=== PATIENT | male | born 1995 | race Caucasian/White ===

== ENCOUNTER 2024-03-12 09:08 | Inpatient (IN) | payer OTHER ==
[2024-03-12 09:31] VITALS: BMI 33.9
[2024-03-12] MEDS ORDERED: LOPERAMIDE HCL 2 MG CAPSULE PO PRN (10:14)
[2024-03-12] MEDS ORDERED: IBUPROFEN 600 MG TABLET (FP) PO PRN (10:14)
[2024-03-12] MEDS ORDERED: IBUPROFEN 400 MG TABLET (FP) PO PRN (10:14)
[2024-03-12] MEDS ORDERED: DICYCLOMINE HCL 10 MG CAPSULE PO PRN (10:14)
[2024-03-12] MEDS ORDERED: ONDANSETRON *ODT* 4 MG TABLET SL PRN (10:14)
[2024-03-12] MEDS ORDERED: NALOXONE HCL 0.4 MG/ML VIAL IM PRN (10:14)
[2024-03-12] MEDS ORDERED: hydrOXYzine PAMOATE 25 MG CAPSULE (FP) PO PRN (10:14)
[2024-03-12] MEDS ORDERED: MAGNESIUM HYDROX 2400MG/30ML ORAL SUSPENSION 30 ML CUP PO PRN (10:14)
[2024-03-12] MEDS ORDERED: MAG HYDROX/AL HYDROX/SIMETH 30 ML UNIT-DOSE CUP PO PRN (10:14)
[2024-03-12] MEDS ORDERED: BENZONATATE 200 MG CAPSULE PO PRN (10:14)
[2024-03-12] MEDS ORDERED: POLYETHYLENE GLYCOL (HEALTHYLAX) 3350 17 GM PACKET PO PRN (10:14)
[2024-03-12] MEDS ORDERED: BISMUTH SUBSALICYLATE 524 MG/30 ML PO PRN (10:14)
[2024-03-12] MEDS ORDERED: BENZOCAINE/MENTHOL (CHLORASEPTIC ) LOZENGE MM PRN (10:14)
[2024-03-12] MEDS ORDERED: guaiFENesin 600 MG TABLET.ER (FP) PO PRN (10:14)
[2024-03-12] MEDS ORDERED: NALOXONE HCL (KLOXXADO) 8 MG SPRAY NS PRN (10:14)
[2024-03-12] MEDS ORDERED: chlordiazePOXIDE HCL 25 MG CAPSULE PO PRN (10:16)
[2024-03-12] MEDS: LORazepam 2 MG/ML SDV VIAL IM ONE (10:39)
[2024-03-12] MEDS: ACETAMINOPHEN 325 MG TABLET (FP) PO PRN (10:41)
[2024-03-12] MEDS: chlordiazePOXIDE HCL 25 MG CAPSULE PO SCH (10:41)
[2024-03-12] MEDS ORDERED: ACETAMINOPHEN 325 MG TABLET (FP) ONE (10:58)
[2024-03-12] MEDS ORDERED: chlordiazePOXIDE HCL 25 MG CAPSULE ONE (10:58)
[2024-03-12] MEDS: THIAMINE 100 MG TABLET PO SCH (22:31)
[2024-03-12] MEDS: METHOCARBAMOL 500 MG TABLET PO PRN (22:31)
[2024-03-12] MEDS: levETIRAcetam 500 MG TABLET (FP) PO SCH (22:31)
[2024-03-12] MEDS: MELATONIN 5 MG TABLETS PO SCH (22:33)
[2024-03-13 09:12] VITALS: PULSE 81; RESP 16
[2024-03-13] MEDS: PRENATAL VITAMINS W/ FOLIC ACID TABLET (FP) PO SCH (10:26)
[2024-03-13 11:21] LABS: HEMATOCRIT 38.8 % (35.4-49); HEMOGLOBIN 12.8 GM/dL (11.7-16.9); MCH 29.7 pg (25.7-33.7); MCHC 32.9 g/dl (32.0-35.9); MEAN CELL VOLUME 90.3 fl (80-96); PLATELET COUNT 175 10^3/uL (134-434); RDW 13.4 % (11.9-15.9); WHITE BLOOD COUNT 6.5 K/mm3 (4.0-10.0)
[2024-03-13 11:43] LABS: POTASSIUM 4.3 mmol/L (3.5-5.1)
[2024-03-13] MEDS: VENLAFAXINE HCL 150 MG E.R. CAPSULE PO SCH (11:44)
[2024-03-13 11:50] LABS: CALCIUM 8.8 mg/dL (8.5-10.1)
[2024-03-13 11:51] LABS: ALBUMIN 3.6 g/dl (3.4-5.0); BLOOD UREA NITROGEN 11.6 mg/dL (7-18)
[2024-03-13 11:54] LABS: CREATININE 0.8 mg/dL (0.55-1.3)
[2024-03-13 11:55] LABS: BILIRUBIN,TOTAL 1.1 mg/dL (0.2-1); TOT PROT 6.6 g/dl (6.4-8.2)
[2024-03-13 13:17] VITALS: BP 119/67; TEMP 98.1
[2024-03-13] MEDS: GABAPENTIN 300 MG CAPSULE PO SCH (13:41)
[2024-03-14] MEDS ORDERED: chlordiazePOXIDE HCL 25 MG CAPSULE PO SCH (05:00)
[2024-03-15] MEDS ORDERED: chlordiazePOXIDE HCL 10 MG CAPSULE PO PRN
[2024-03-15] MEDS ORDERED: chlordiazePOXIDE HCL 10 MG CAPSULE PO SCH (05:00)
[2024-03-16] MEDS ORDERED: chlordiazePOXIDE HCL 10 MG CAPSULE PO SCH (05:00)
[2024-03-17] MEDS ORDERED: chlordiazePOXIDE HCL 10 MG CAPSULE PO ONE (05:00)
== END 2024-03-13 18:51 | disposition left against medical advice (07) | DRG 770 ==
LOC: YASAS 09:08 → Y6N 11:06
PROVIDERS: ADMIT Allergy & Immunology; ATTEND Surgery
PROC: HZ2ZZZZ Detoxification Services for Substance Abuse Treatment (ICD-10-PCS; principal; 2024-03-12)
DX: F10.230 Alcohol dependence with withdrawal, uncomplicated (principal); F31.9 Bipolar disorder, unspecified; F10.280 Alcohol dependence with alcohol-induced anxiety disorder; F41.9 Anxiety disorder, unspecified; E78.5 Hyperlipidemia, unspecified; I10 Essential (primary) hypertension; R56.9 Unspecified convulsions; Z87.891 Personal history of nicotine dependence; Z62.810 Personal history of physical and sexual abuse in childhood; Z63.8 Other specified problems related to primary support group
CPT/HCPCS: 36415; 80053; 80307; 84484; 85027; 86780; 93005; 93010